=== PATIENT | female | born 1955 | race Caucasian/White ===

== ENCOUNTER 2017-06-10 11:20 | Day surgery (SDC) | payer OTHER ==
[2017-06-10] MEDS ORDERED: NS 500 ML IV ONE (11:26)
[2017-06-10] MEDS ORDERED: ATROPINE SULFATE 1 MG/10 ML SYR IVP ONE (11:26)
--- NOTE | 2017-06-10 11:39 | CPEKG ---
Heart Rate: 101 RR Interval: 594 QRSD Interval: 124 QT Interval: 380 QTC Interval: 493 QRS [place]: -35 T Wave [place]: 105 EKG Severity - ABNORMAL ECG - EKG Impression: ATRIAL FIBRILLATION, V-RATE 75-124 EKG Impression: VENTRICULAR PREMATURE COMPLEX EKG Impression: LEFT BUNDLE BRANCH BLOCK EKG Impression: COMPARED WITH 07/30/2016, ATRIAL FIBRILLATION NOW PRESENT. QRS IS WIDER Electronically Signed By: Meka Dumont 10-Jun-2017 17:56:43
--- NOTE | 2017-06-10 11:47 | PDGENHP ---
History & Physical Chief Complaint: Palpitations, fatigue History of Present Illness: Sx of AFIB started over weekend. Dose of carvedilol was increased. Has not missed Eliquis in > 1 month. Pertinent Past, Social, Family History: NICMP. AFIB Relevant Physical Exam: S1S2 irreg. CTA. AO x 3 Cardiorespiratory Assessment: 62 F with NICMP, AFIB, here for cardioversion procedure. Has been on uninterrupted anticoagulation with Eliquis. Is scheduled for ablation in August.
[2017-06-10] MEDS ORDERED: PROPOFOL 200 MG/20 ML VIAL ONE (12:00)
[2017-06-10 12:04] LABS: INR 1.17 (0.83-1.16); PROTIME(PATIENT) 14.9 SEC (12.0-15.0)
[2017-06-10 12:05] LABS: APTT 29.5 SEC (23.0-38.0)
--- NOTE | 2017-06-10 12:14 | PDTEE1 ---
MARIELA Cardioversion Procedure Procedure: Electrical Cardioversion Indications: Atrial Fibrillation Consent: Signed and in Chart Anticoagulation: Eliquis Procedural Details: Pads were placed in anterior-posterior position. MARIELA probe was advanced and standard images obtained. There is no evidence of left atrial or left atrial appendage thrombus. Synchronized cardioversion attempt #1: 200J Results: Normal sinus rhythm Conclusions: Successful Cardioversion (MARIELA NOT DONE PATIENT ON UNINTERRUPTED ELIQUIS) Patient Problems: Problems Problem Status Onset Atrial fibrillation Acute Visit for monitoring Tikosyn therapy Acute
[2017-06-10 12:15] LABS: ANION GAP 9 mEq/L (8-16); CALCIUM 9.8 mg/dL (8.5-10.4); CARBON DIOXIDE 27 mEq/l (22-31); CHLORIDE 103 mEq/L (97-110); GLOMERULAR FILTRATION RATE 56; GLUCOSE 110 mg/dL (70-100); POTASSIUM 4.3 mEq/L (3.5-5.2); SODIUM 139 mEq/L (134-144)
--- NOTE | 2017-06-10 12:23 | PDANEPAE ---
ANE History of Present Illness Patient presents for cardioversion ANE Past Medical History - Cardiovascular History Hx Hypertension: Yes Hx Arrhythmias: Yes - Pulmonary History Hx COPD: No Hx Sleep Apnea: Yes - Endocrine History Hx Diabetes: No - Chronic Pain History Chronic Pain: No ANE Patient History - Allergies Allergies/Adverse Reactions: Tetanus Vaccines and Toxoid [Tetanus Vaccines & Toxoid] Allergy (Verified 10:48) thimerosal Allergy (Verified 02/22/15 10:48) - Home Medications Home medications: home medication list seen and reviewed Home Medications: Apixaban [Eliquis] 5 mg PO BID 03/15/15 [Last Taken 07/27/16 21:00] Carvedilol [Coreg (*)] 12.5 mg PO BIDMEAL 03/15/15 [Last Taken 07/29/16 18:00] Herbals/Supplements -Info Only 1 ea PO DAILY 03/15/15 [Last Taken 03/15/15] Levothyroxine [Synthroid 50 mcg (*)] 25 mcg PO Q2D@03/15/15 [Last Taken 07/29] Levothyroxine [Synthroid 50 mcg (*)] 50 mcg PO Q2D@03/15/15 [Last Taken 07/28] Cholecalciferol Vit D3 [Vitamin D3 (*)] 5,000 units PO DAILY 07/30/16 [Last Taken 07/29/16] [place]-3 Fatty Acids [Fish Oil 1000 mg (*)] 2,000 mg PO DAILY 07/30/16 [Last Taken 07/29/16] Sacubitril/Valsartan 24/26Mg [Entresto 24 mg/26 mg (RX)] 1 ea PO BID 07/30/16 [ Last Taken 07/29/16 21:00] Dofetilide 125 mg PO BID 06/10/17 [Last Taken Unknown] - NPO status NPO Status: no food or drink >8 hours - Smoking Hx Smoking Status: Former smoker ANE Labs/Vital Signs - Labs Result Diagrams: 06/10/17 11:45 - Vital Signs Height: 168 cm Weight: 84.1 kg ANE Physical Exam - Airway Neck exam: FROM Mallampati Score: Class 2 Mouth exam: normal dental/mouth exam - Pulmonary Pulmonary: no respiratory distress - Cardiovascular Cardiovascular: irregularly irregular - ASA Status ASA Status: III ANE Anesthesia Plan Anesthesia Plan: GA with mask (RBA discussed)
--- NOTE | 2017-06-10 12:23 | POSTANESTH ---
Post Anesthetic Evaluation Cardiovascular Status: Normal, Stable Respiratory Status: Normal, Stable Level of Consciousness/Mental Status: Can Participate in Eval Pain Control: Adequate, Prn Tx Ordered Nausea/Vomiting Control: Adequate, Prn Tx Ordered Complications Possibly Related to Anesthesia: None Noted
--- NOTE | 2017-06-10 12:27 | CPEKG ---
Heart Rate: 58 RR Interval: 1034 P-R Interval: 204 QRSD Interval: 114 QT Interval: 452 QTC Interval: 445 P [place]: 59 QRS [place]: -20 T Wave [place]: 99 EKG Severity - ABNORMAL ECG - EKG Impression: SINUS RHYTHM EKG Impression: PAIRED VENTRICULAR PREMATURE COMPLEXES EKG Impression: NONSPECIFIC INTRAVENTRICULAR CONDUCTION DELAY EKG Impression: PROBABLE LVH WITH SECONDARY REPOL ABNRM EKG Impression: COMPARED WITH 06/10/2017 AT 11:37 A.M., SINUS RHYTHM HAS BEEN RESTORED Electronically Signed By: Meka Dumont 10-Jun-2017 17:56:02
== END 2017-06-10 13:20 | disposition home or self-care (01) ==
LOC: FIMAGING 11:20 → FCATH 13:20
PROVIDERS: ATTEND Internal Medicine Cardiovascular Disease
PROC: 5A2204Z Restoration of Cardiac Rhythm, Single (ICD-10-PCS; principal; 2017-06-10)
DX: I48.91 Unspecified atrial fibrillation (principal); I10 Essential (primary) hypertension; G47.33 Obstructive sleep apnea (adult) (pediatric); Z79.01 Long term (current) use of anticoagulants; Z87.891 Personal history of nicotine dependence
CPT/HCPCS: J0461; J2704

== ENCOUNTER 2017-08-12 06:53 | Observation (INO) | payer OTHER ==
[2017-08-12] MEDS ORDERED: NS 1,000 ML IV ONE (07:00)
[2017-08-12 07:33] LABS: % IMMATURE GRANULYOCYTES 0.2 % (0.0-1.1); ABSOLUTE IMMATURE GRANULOCYTES 0.01 10^3/uL (0.00-0.10); ADD DIFF? NO; ADD MORPH? NO; ADD SCAN? NO; ATYPICAL LYMPHOCYTE FLAG 10 (0-99); FRAGMENT RBC FLAG 0 (0-99); HEMOGLOBIN 14.7 g/dL (12.6-16.3); LEFT SHIFT FLG 0 (0-99); LIPEMIA HEMOLYSIS FLAG 90 (0-99); MEAN CELL HEMOGLOBIN 31.2 pg (27.9-34.1); MEAN CELL VOLUME 89.2 fL (81.5-99.8); MEAN PLATELET VOLUME 10.3 fL (8.7-11.7); PLATELET CLUMPS FLAG 10 (0-99); PLATELET COUNT 174 10^3/uL (150-400); RED BLOOD CELL COUNT 4.71 10^6/uL (4.18-5.33); RED CELL DISTRIBUTION WIDTH 13.3 % (11.5-15.2)
--- NOTE | 2017-08-12 07:34 | CPEKG ---
Heart Rate: 66 RR Interval: 909 P-R Interval: 200 QRSD Interval: 112 QT Interval: 460 QTC Interval: 482 P [place]: 62 QRS [place]: -15 T Wave [place]: 109 EKG Severity - ABNORMAL ECG - EKG Impression: SINUS RHYTHM EKG Impression: VENTRICULAR PREMATURE COMPLEX EKG Impression: INCOMPLETE LEFT BUNDLE BRANCH BLOCK Electronically Signed By: Randy Pineda 12-Aug-2017 10:37:25
[2017-08-12 07:42] LABS: INR 0.99 (0.83-1.16)
[2017-08-12 07:53] LABS: ANION GAP 12 mEq/L (8-16); CALCIUM 9.7 mg/dL (8.5-10.4); CARBON DIOXIDE 27 mEq/l (22-31); CHLORIDE 103 mEq/L (97-110); CREATININE 0.9 mg/dL (0.6-1.0); GLOMERULAR FILTRATION RATE > 60; GLUCOSE 100 mg/dL (70-100); POTASSIUM 4.3 mEq/L (3.5-5.2); SODIUM 142 mEq/L (134-144)
[2017-08-12] MEDS ORDERED: HEPARIN/DEXTROSE 25,000 UNIT/500 ML BAG ONE (07:54)
[2017-08-12] MEDS ORDERED: BUPIVACAINE 0.5% 30 ML SDV ONE (07:54)
[2017-08-12] MEDS ORDERED: LIDOCAINE 1% 300 MG/30 ML SDV ONE (07:54)
[2017-08-12] MEDS ORDERED: HEPARIN 10,000 UNIT/10 ML MDV ONE (07:54)
[2017-08-12] MEDS ORDERED: MIDAZOLAM 2 MG/2 ML VIAL ONE (08:35)
--- NOTE | 2017-08-12 08:37 | PDANEPAE ---
ANE History of Present Illness ep ANE Past Medical History - Cardiovascular History Hx Hypertension: Yes Hx Arrhythmias: Yes - Pulmonary History Hx COPD: No Hx Sleep Apnea: Yes - Neurologic History Hx Cerebrovascular Accident: No Hx Seizures: No Hx Dementia: No - Endocrine History Hx Diabetes: No - Renal History Hx Renal Disorders: No - Liver History Hx Hepatic Disorders: No - Chronic Pain History Chronic Pain: No ANE Review of Systems Review of Systems: - Exercise capacity METS (RN): 3 METS ANE Patient History - Allergies Allergies/Adverse Reactions: Tetanus Vaccines and Toxoid [Tetanus Vaccines & Toxoid] Allergy (Unknown, Verified 08/05/17 12:52) Other-Enter Comments thimerosal Allergy (Unknown, Verified 08/05/17 12:52) Other-Enter Comments digoxin Allergy (Verified 08/05/17 12:52) GI upset - Home Medications Home Medications: Apixaban [Eliquis] 5 mg PO BID 03/15/15 [Last Taken 07/27/16 21:00] Carvedilol [Coreg (*)] 12.5 mg PO BIDMEAL 03/15/15 [Last Taken 07/29/16 18:00] Herbals/Supplements -Info Only 1 ea PO DAILY 03/15/15 [Last Taken 03/15/15] Levothyroxine [Synthroid 50 mcg (*)] 25 mcg PO Q2D@03/15/15 [Last Taken 07/29] Levothyroxine [Synthroid 50 mcg (*)] 50 mcg PO Q2D@03/15/15 [Last Taken 07/28] Cholecalciferol Vit D3 [Vitamin D3 (*)] 5,000 units PO DAILY 07/30/16 [Last Taken 07/29/16] [place]-3 Fatty Acids [Fish Oil 1000 mg (*)] 2,000 mg PO DAILY 07/30/16 [Last Taken 07/29/16] Sacubitril/Valsartan 24/26Mg [Entresto 24 mg/26 mg (RX)] 1 ea PO BID 07/30/16 [ Last Taken 07/29/16 21:00] Dofetilide [Tikosyn 0.125 MG (*)] 125 mcg PO BID 08/05/17 [Last Taken Unknown] Magnesium Oxide [Magnesium Oxide 400 mg (*)] 800 mg PO DAILY 08/05/17 [Last Taken Unknown] Vitamin B Complex [Super B-50 Complex] 1 each PO DAILY 08/05/17 [Last Taken Unknown] - Smoking Hx Smoking Status: Former smoker ANE Labs/Vital Signs - Labs Result Diagrams: 08/12/17 07:25 08/12/17 07:25 ANE Physical Exam - Airway Mallampati Score: Class 2 Mouth exam: normal dental/mouth exam - Pulmonary Pulmonary: no respiratory distress - Cardiovascular Cardiovascular: irregularly irregular - ASA Status ASA Status: II ANE Anesthesia Plan Anesthesia Plan: general endotracheal anesthesia
--- NOTE | 2017-08-12 08:44 | PDGENHP ---
History & Physical Chief Complaint: AFIB, CMP History of Present Illness: Symptomatic AFIB, breakthrough on Tikosyn, prior h.o. CMP Pertinent Past, Social, Family History: Non ischemic CMP Relevant Physical Exam: S1S2 irreg (PAC). CTA. AO x 3 Cardiorespiratory Assessment: AFIB for PV isolation. Has common inferior vein ( uncommon anomaly) so will do RF instead of cryo
[2017-08-12] MEDS ORDERED: ROCURONIUM 50 MG/5 ML VIAL ONE (08:49)
[2017-08-12] MEDS ORDERED: fentaNYL 100 MCG/2 ML INJ ONE (08:51)
[2017-08-12] MEDS ORDERED: DEXAMETHASONE 4 MG/ML VIAL ONE (08:51)
[2017-08-12] MEDS ORDERED: PROPOFOL 200 MG/20 ML VIAL ONE (08:51)
[2017-08-12] MEDS ORDERED: SUGAMMADEX SODIUM 200 MG/2 ML VIAL IVP ONE (09:37)
[2017-08-12] MEDS ORDERED: ONDANSETRON 4 MG/2 ML VIAL IVP PRN (09:56)
[2017-08-12] MEDS ORDERED: ALBUTEROL 3 ML DEYVIAL IH PRN (09:56)
[2017-08-12] MEDS ORDERED: NALOXONE HCL 0.4 MG/ML INJ IVP PRN (09:56)
--- NOTE | 2017-08-12 10:47 | PDGENHP ---
History and Physical - Chief Complaint Atrial fibrillation, cardiomyopathy - History of Present Illness Patient presented for an atrial fibrillation ablation. Janusz done prior to the procedure showed that her left ventricular ejection fraction had decreased to 25 % and there was small pericardial effusion. Ablation procedure was not done. Following the procedure, I had an extensive conversation with the patient and her as documented below in assessment and plan. She states that she has been feeling more PVCs over the last 1-2 months. She has not had syncope. She does not have exertional chest pain despite doing strenuous hikes. History Information - Allergies/Home Medication List Allergies/Adverse Reactions: Tetanus Vaccines and Toxoid [Tetanus Vaccines & Toxoid] Allergy (Unknown, Verified 08/05/17 12:52) Other-Enter Comments thimerosal Allergy (Unknown, Verified 08/05/17 12:52) Other-Enter Comments digoxin Allergy (Verified 08/05/17 12:52) GI upset Home Medications: Apixaban [Eliquis] 5 mg PO BID 03/15/15 [Last Taken 07/27/16 21:00] Carvedilol [Coreg (*)] 12.5 mg PO BIDMEAL 03/15/15 [Last Taken 07/29/16 18:00] Herbals/Supplements -Info Only 1 ea PO DAILY 03/15/15 [Last Taken 03/15/15] Levothyroxine [Synthroid 50 mcg (*)] 25 mcg PO Q2D@03/15/15 [Last Taken 07/29] Levothyroxine [Synthroid 50 mcg (*)] 50 mcg PO Q2D@03/15/15 [Last Taken 07/28] Cholecalciferol Vit D3 [Vitamin D3 (*)] 5,000 units PO DAILY 07/30/16 [Last Taken 07/29/16] [place]-3 Fatty Acids [Fish Oil 1000 mg (*)] 2,000 mg PO DAILY 07/30/16 [Last Taken 07/29/16] Sacubitril/Valsartan 24/26Mg [Entresto 24 mg/26 mg (RX)] 1 ea PO BID 07/30/16 [ Last Taken 07/29/16 21:00] Dofetilide [Tikosyn 0.125 MG (*)] 125 mcg PO BID 08/05/17 [Last Taken Unknown] Magnesium Oxide [Magnesium Oxide 400 mg (*)] 800 mg PO DAILY 08/05/17 [Last Taken Unknown] Vitamin B Complex [Super B-50 Complex] 1 each PO DAILY 08/05/17 [Last Taken Unknown] I have personally reviewed and updated: family history, medical history, social history, surgical history - Social History Smoking Status: Former smoker Review of Systems Review of Systems: ROS: 10pt was reviewed & negative except for what was stated in HPI & below Physical Exam Physical Exam: Constitutional: no apparent distress, appears nourished Eyes: PERRL Ears, Nose, Mouth, Throat: moist mucous membranes Cardiovascular: regular rate and rhythym Respiratory: no respiratory distress, no rales or rhonchi Skin: warm Neurologic: AAOx3, sensation intact bilaterally Psychiatric: interacting appropriately, not anxious, not encephalopathic Lab Data & Imaging Review 08/12/17 07:25 08/12/17 07:25 WBC 4.86 10^3/uL (3.80-9.50) 08/12/17 07:25 RBC 4.71 10^6/uL (4.18-5.33) 08/12/17 07:25 Hgb 14.7 g/dL (12.6-16.3) 08/12/17 07:25 Hct 42.0 % (38.0-47.0) 08/12/17 07:25 MCV 89.2 fL (81.5-99.8) 08/12/17 07:25 MCH 31.2 pg (27.9-34.1) 08/12/17 07:25 MCHC 35.0 g/dL (32.4-36.7) 08/12/17 07:25 RDW 13.3 % (11.5-15.2) 08/12/17 07:25 Plt Count 174 10^3/uL (150-400) 08/12/17 07:25 MPV 10.3 fL (8.7-11.7) 08/12/17 07:25 Neut % (Auto) 49.8 % (39.3-74.2) 08/12/17 07:25 Lymph % (Auto) 35.6 % (15.0-45.0) 08/12/17 07:25 [place] % (Auto) 11.1 % (4.5-13.0) 08/12/17 07:25 Eos % (Auto) 2.5 % (0.6-7.6) 08/12/17 07:25 Baso % (Auto) 0.8 % (0.3-1.7) 08/12/17 07:25 Nucleat RBC Rel Count 0.0 % (0.0-0.2) 08/12/17 07:25 Absolute Neuts (auto) 2.42 10^3/uL (1.70-6.50) 08/12/17 07:25 Absolute Lymphs (auto) 1.73 10^3/uL (1.00-3.00) 08/12/17 07:25 Absolute Monos (auto) 0.54 10^3/uL (0.30-0.80) 08/12/17 07:25 Absolute Eos (auto) 0.12 10^3/uL (0.03-0.40) 08/12/17 07:25 Absolute Basos (auto) 0.04 10^3/uL (0.02-0.10) 08/12/17 07:25 Absolute Nucleated RBC 0.00 10^3/uL (0-0.01) 08/12/17 07:25 Immature Gran % 0.2 % (0.0-1.1) 08/12/17 07:25 Immature Gran # 0.01 10^3/uL (0.00-0.10) 08/12/17 07:25 PT 13.0 SEC (12.0-15.0) 08/12/17 07:25 INR 0.99 (0.83-1.16) 08/12/17 07:25 APTT 26.0 SEC (23.0-38.0) 08/12/17 07:25 Sodium 142 mEq/L (134-144) 08/12/17 07:25 Potassium 4.3 mEq/L (3.5-5.2) 08/12/17 07:25 Chloride 103 mEq/L (97-110) 08/12/17 07:25 Carbon Dioxide 27 mEq/l (22-31) 08/12/17 07:25 Anion Gap 12 mEq/L (8-16) 08/12/17 07:25 BUN 18 mg/dL (7-23) 11/07/17 07:25 Creatinine 0.9 mg/dL (0.6-1.0) 08/12/17 07:25 Estimated GFR > 60 08/12/17 07:25 Glucose 100 mg/dL (70-100) 08/12/17 07:25 Calcium 9.7 mg/dL (8.5-10.4) 08/12/17 07:25 Magnesium 2.0 mg/dL (1.6-2.3) 08/12/17 07:25 Patient ABO/Rh A POSITIVE 08/12/17 07:25 Antibody Screen NEGATIVE 08/12/17 07:25 Assessment & Plan Assessment: 1. Unexplained worsening of LV ejection fraction. 2. Complex ventricular ectopy 3. Atrial fibrillation Plan: 62 yr F with h/o cardiomyopathy for 10 years. Original presentation was in 2005 after protracted URI. She presented again 3 years ago with atrial fibrillation and rapid ventricular response and was thought to have superimposed tachycardia mediated cardiomyopathy. Her left ventricular ejection fraction normalized with medical therapy including beta-laura and Entresto. Rhythm was controlled with Tikosyn. She is on Eliquis for anticoagulation. We cancelled her ablation procedure due to unexplained drop in LVEF despite normal rhythm. 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 We will get 2nd opinion on her MRI that was done last year. She has developed cardiomyopathy despite medical Rx with Entresto and BB. She has had controlled V rates and does not consume ETOH. My recommendations are: 1. Unclear benefit from AFIB ablation procedure at this time robinson given LVEF has declined despite rhythm control. Continue Tikosyn + Eliquis. 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 2. Continue Entresto, BB 3. Consider single chamber ICD given low LVEF and complex ventricular ectopy. RIsks of TV vs SQ ICD d.w. her and her . Plan single chamber TV ICD tomorrow - risks of cardiac perforation, pneumothorax, bleeding, infection, DVT , lead dislodgement etc d.w. them. Will d.w. Dr. Munoz, her fisheries management biologist.
[2017-08-12] MEDS: CARVEDILOL 25 MG TAB PO SCH (17:46)
[2017-08-12] MEDS ORDERED: LEVOTHYROXINE 50 MCG TAB ONE (21:00)
[2017-08-12] MEDS: DOFETILIDE 0.125 MG CAP PO SCH (21:05)
[2017-08-12] MEDS: SACUBITRIL/VALSARTAN 24/26MG 1 EA TAB PO SCH (21:06)
[2017-08-13 05:22] LABS: % IMMATURE GRANULYOCYTES 0.2 % (0.0-1.1); ABSOLUTE IMMATURE GRANULOCYTES 0.02 10^3/uL (0.00-0.10); ADD DIFF? NO; ADD MORPH? NO; ADD SCAN? NO; ATYPICAL LYMPHOCYTE FLAG 0 (0-99); FRAGMENT RBC FLAG 0 (0-99); HEMATOCRIT 40.2 % (38.0-47.0); HEMOGLOBIN 13.1 g/dL (12.6-16.3); LEFT SHIFT FLG 0 (0-99); LIPEMIA HEMOLYSIS FLAG 80 (0-99); MEAN CELL HEMOGLOBIN 29.5 pg (27.9-34.1); MEAN CELL HEMOGLOBIN CONCENTR. 32.6 g/dL (32.4-36.7); MEAN CELL VOLUME 90.5 fL (81.5-99.8); PLATELET CLUMPS FLAG 10 (0-99); PLATELET COUNT 170 10^3/uL (150-400); RED BLOOD CELL COUNT 4.44 10^6/uL (4.18-5.33); RED CELL DISTRIBUTION WIDTH 13.2 % (11.5-15.2)
[2017-08-13 05:26] LABS: INR 1.04 (0.83-1.16); PROTIME(PATIENT) 13.5 SEC (12.0-15.0)
[2017-08-13 05:27] LABS: APTT 24.5 SEC (23.0-38.0)
[2017-08-13 05:33] LABS: ALANINE AMINOTRANSFERASE 40 IU/L (9-52); ALBUMIN 3.9 g/dL (3.5-5.0); ALKALINE PHOSPHATASE 45 IU/L (38-126); ANION GAP 10 mEq/L (8-16); ASPARTATE AMINOTRANSFERASE 24 IU/L (14-46); BILIRUBIN,TOTAL 0.5 mg/dL (0.1-1.4); CALCIUM 9.5 mg/dL (8.5-10.4); CARBON DIOXIDE 26 mEq/l (22-31); CHLORIDE 105 mEq/L (97-110); CREATININE 0.9 mg/dL (0.6-1.0); GLOMERULAR FILTRATION RATE > 60; GLUCOSE 105 mg/dL (70-100); POTASSIUM 4.2 mEq/L (3.5-5.2); SODIUM 141 mEq/L (134-144); TOTAL PROTEIN 6.2 g/dL (6.3-8.2)
[2017-08-13] MEDS ORDERED: NS 1,000 ML IV ONE (08:01)
[2017-08-13] MEDS ORDERED: DIAZEPAM 5 MG TAB PO ONE (08:01)
[2017-08-13] MEDS ORDERED: BACITRACIN IRRIGATION/NS 50,000 UNITS/1,000 ML BTL IRR ONE (08:01)
[2017-08-13] MEDS ORDERED: ceFAZolin 2 GM/SWFI 2 GM/20 ML SYR IVP ONE (08:01)
[2017-08-13] MEDS ORDERED: diphenhydrAMINE 25 MG CAP PO ONE (08:01)
[2017-08-13] MEDS ORDERED: ceFAZolin 2 GM/DEXTROSE 100 ML IV ONE (08:15)
--- NOTE | 2017-08-13 08:46 | CPEKG ---
Heart Rate: 61 RR Interval: 984 P-R Interval: 216 QRSD Interval: 109 QT Interval: 456 QTC Interval: 460 P [place]: 35 QRS [place]: -15 T Wave [place]: 58 EKG Severity - ABNORMAL ECG - EKG Impression: SINUS RHYTHM EKG Impression: Frequent PVC EKG Impression: NONSPECIFIC INTRAVENTRICULAR CONDUCTION DELAY EKG Impression: LEFT VENTRICULAR HYPERTROPHY Electronically Signed By: Cole Wilcox 13-Aug-2017 17:04:06
[2017-08-13] MEDS ORDERED: MAGNESIUM OXIDE 400 MG TAB PO SCH ×2 (09:00→21:00)
[2017-08-13] MEDS ORDERED: VITAMIN B COMPLEX 1 EA CAP/TAB PO SCH (09:00)
[2017-08-13] MEDS ORDERED: CHOLECALCIFEROL VIT D3 1,000 UNITS TAB PO SCH (09:00)
[2017-08-13] MEDS ORDERED: NON-FORMULARY NEW DRUG (Vitamin B Complex [Super B-50 Complex] 1 EACH) PO SCH (09:00)
[2017-08-13] MEDS ORDERED: OMEGA-3 FATTY ACIDS 1,000 MG CAP PO SCH (09:00)
[2017-08-13] MEDS: CARVEDILOL 25 MG TAB PO SCH (09:02)
[2017-08-13] MEDS: DOFETILIDE 0.125 MG CAP PO SCH (09:03)
[2017-08-13] MEDS: SACUBITRIL/VALSARTAN 24/26MG 1 EA TAB PO SCH (09:10)
[2017-08-13] MEDS ORDERED: BUPIVACAINE 0.5% 30 ML SDV ONE (10:45)
[2017-08-13] MEDS ORDERED: IOPAMIDOL (ISOVUE-300) 100 ML BTL ONE (10:45)
[2017-08-13] MEDS ORDERED: LIDOCAINE 1% 300 MG/30 ML SDV ONE (10:45)
--- NOTE | 2017-08-13 10:46 | ASMTCMCOM ---
CM Note CM Note Notes: 08/13/2017 Case Management Note Reviewed chart, spoke w/RN. No case management d/c needs identified d/t pt age, marital status, employment status and activity levels prior to admission. No PT or OT evals ordered. Case Management d/c poc: Home with family support when medically stable with follow up as directed. Date Signed: 08/13/2017 10:45 AM Electronically Signed By:Shania Lora RN
--- NOTE | 2017-08-13 13:08 | PDCARPN ---
Cardiology Progress Note Assessment/Plan: Assessment: 1. 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 Atrial fibrillation 3.Frequent PVCs Plan: I spent 1 hour yesterday and 45 minutes today talking with the patient and her . Her atrial fibrillation ablation was canceled because of unexplained worsening in left ventricular ejection fraction while in normal sinus rhythm. Her left ventricular ejection fraction is 25-30% on transesophageal echocardiogram which were reviewed both by myself and Dr. Dumont. I also discussed her case with her primary export clerk Dr. Sukhdev Munoz. Given drop in left ventricular ejection fraction while in sinus rhythm despite optimal medical therapy, we had scheduled a single-chamber ICD for her today. She does not want the ICD at this time. She is concerned about possible allergy to titanium and is going to see a core measures abstractor for skin testing. She would also like to get a 2nd opinion, Dr. Sukhdev Munoz is going to talk to her this afternoon prior to hospital discharge to discuss this with her. She understands the risk of sudden cardiac . She will continue on current medical therapy including beta-laura, Entresto, dofetilide and Eliquis. She will see me on a as needed basis. 08/13/17 13:05 Objective: Vital Signs (8 Hrs) Temp Pulse Resp BP Pulse Ox 08/13/17 12:00 36.4 C 70 18 136/56 H 91 L 08/13/17 09:02 65 145/80 H 08/13/17 07:37 36.2 C 59 L 91 H 137/86 H 18 L Intake/Output (24 Hrs) 08/12/17 08/13/17 08/14/17 11:59 11:59 11:59 Intake Total 1400 Balance 1400 Intake: Oral (ml) 1400 Other: Weight 82.6 kg Number of Voids Toilet 2 Result Diagrams: 08/13/17 04:11 08/13/17 04:11 ICD10 Worksheet Patient Problems: Problems Problem Status Onset Atrial fibrillation Acute Visit for monitoring Tikosyn therapy Acute
[2017-08-13 15:32] VITALS: BP 133/72; PULSE 58; RESP 16; TEMP 98; O2SAT 94
[2017-08-13] MEDS ORDERED: LEVOTHYROXINE 50 MCG TAB PO SCH (16:15)
[2017-08-13] MEDS ORDERED: CARVEDILOL 6.25 MG TAB PO SCH (18:00)
[2017-08-14] MEDS ORDERED: LEVOTHYROXINE 50 MCG TAB PO SCH (06:00)
[2017-08-14] MEDS ORDERED: SPIRONOLACTONE 25 MG TAB PO SCH (09:00)
--- NOTE | 2017-08-14 15:55 | ASDISCHSUM ---
Discharge Information Plan Status:Home with No Needs Medically Cleared to Leave:08/12/2017 Discharge Date:08/13/2017 04:16 PM CM D/C Disposition:Home, Routine, Self-Care ADT D/C Disposition:Home, Routine, Self-Care Projected Discharge Date:08/13/2017 12:00 AM Transportation at D/C:Family Discharge Delay Reason: Follow-Up Date:08/13/2017 12:00 AM Discharge Slot: Final Diagnosis: Placement Information Patient Contact Information Contact Name:YONYEDILBERTORODRICK Relationship: Address:[facility] [address] [place] Alternate Phone: State/Zip Code:[place] [address] Email: Financial Information Financial Class:HMO and PPO Plans Primary Plan Desc:HMO [employer] PLAN Primary Plan Number:[id number] Secondary Plan Desc: Secondary Plan Number: Assessment Information BC CM Progress Note CM Note CM Note Notes: 08/13/2017 Case Management Note Reviewed chart, spoke w/RN. No case management d/c needs identified d/t pt age, marital status, employment status and activity levels prior to admission. No PT or OT evals ordered. Case Management d/c poc: Home with family support when medically stable with follow up as directed. Date Signed: 08/13/2017 10:45 AM Electronically Signed By:Shania Lora RN Intervention Information
--- NOTE | 2017-08-19 13:47 | GDS ---
[f rep st] DISCHARGE SUMMARY ADMIT DIAGNOSIS: 1. 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 2. Atrial fibrillation. 3. Frequent premature ventricular contractions. 4. Planned placement of a single-chamber internal cardioverter-defibrillator. DISCHARGE DIAGNOSIS: 1. 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 2. Atrial fibrillation. 3. Frequent premature ventricular contractions. 4. Tikosyn load. 5. Internal cardioverter-defibrillator placement canceled. COURSE OF HOSPITALIZATION: The patient was seen in clinic by Dr. Wilcox for atrial fibrillation. It had been decided to have her come into the hospital for electrophysiology study with possible ablation therapy. This was canceled due to finding unexplained worsening left ventricular ejection fraction while in sinus rhythm. This was found by MARIELA prior to proposed procedures. Her left ventricular ejection fraction is now 20% to 30% on transesophageal echocardiogram, which was reviewed with both Dr. Wilcox and Dr. Dumont. Dr. Wilcox discussed her case with her primary power hammer operator, Dr. Sukhdev Munoz. Dr. Munoz also visited with the patient about her newfound cardiac condition, and the benefit with a low ejection fraction of placing a single-chamber ICD. She did not want to have an ICD placed at this time due to the fact that she was concerned about possible allergy to titanium. It was her desire to speak with her wax coating machine tender for skin testing prior to having the procedure. As noted, Dr. Munoz did visit with her this afternoon prior to her discharge about her current condition, and emphasized that with her ejection fraction low at 25% to 30%, this put her at an increased risk for sudden . At this time, she has determined that she would prefer continuation on current medical therapy including beta laura, Entresto, dofetilide and Eliquis. She is to see Dr. Wilcox on an as-needed basis at this point. She will continue to follow up with her primary power hammer operator, Dr. Sukhdev Munoz. She will follow up with Dr. Munoz in [address] Munoz did initiate carvedilol therapy at 18.75 mg twice daily with addition of Aldactone 25 mg daily. MEDICATIONS: She will go home on carvedilol 18.75 mg twice daily, spironolactone 25 mg daily, herbal supplements 1 daily, Synthroid 50 mcg every 2nd day, Eliquis 5 mg twice daily, Entresto 24/26 mg twice daily, vitamin D3 5000 units daily, omega-3 fatty acids 2000 mg daily, Tikosyn 0.125 mg twice daily, vitamin B complex 1 daily, magnesium oxide 800 mg daily. ALLERGIES: To tetanus vaccine and toxoids, digoxin. PHYSICAL EXAMINATION: On day of discharge: VITAL SIGNS: 133/72, heart rate 58 and regular, oxygen saturation 94%. EKG: Normal sinus rhythm with a first- degree block. HEART: Rate regular. No murmurs, rubs, gallops. LUNGS: Sounds are clear to auscultation. No wheezes, rales, or rhonchi. EXTREMITIES: No peripheral edema. Pulses are 2+ bilaterally. DISCHARGE PLAN: She will follow up with Dr. Sukhdev Munoz in 1 week. Should she have problems or concerns, she is asked to call the clinic to speak to NIKUNJ Shipley, Dr. Munoz' nurse, and he will follow up with her as soon as possible. At this time, she currently is stable for discharge. /[id number]/MODL MTDD
== END 2017-08-13 16:16 | disposition home or self-care (01) ==
LOC: FCATH 06:53 → F2W 10:22
PROVIDERS: ADMIT Internal Medicine Cardiovascular Disease; ATTEND Internal Medicine Cardiovascular Disease
PROC: B246ZZ4 Ultrasonography of Right and Left Heart, Transesophageal (ICD-10-PCS; principal; 2017-08-12)
DX: I48.0 Paroxysmal atrial fibrillation (principal); I42.9 Cardiomyopathy, unspecified
CPT/HCPCS: 93005; 93312; G0378; J0690; J1100; J1644; J2250; J2704; J3010; Q9967

== ENCOUNTER → 2017-09-03 | Outpatient (CLI) | payer OTHER | LOC: CIMAGING 12:12 | PROVIDERS: ATTEND Internal Medicine | DX: Z12.31 Encounter for screening mammogram for malignant neoplasm of breast (principal) | CPT/HCPCS: G0202 ==

== ENCOUNTER → 2017-09-12 | Outpatient (CLI) | payer OTHER | LOC: FIMAGING 08:51 | PROVIDERS: ATTEND Internal Medicine | DX: R92.8 Other abnormal and inconclusive findings on diagnostic imaging of breast (principal) | CPT/HCPCS: G0206 ==